=== PATIENT | female | born 1950 | race Caucasian/White ===

== ENCOUNTER 2018-09-18 08:20 | Inpatient (IN) | payer MEDICAID ==
[2018-09-18] VITALS (16 sets, daily range): BP systolic 96–154; BP diastolic 46–64
[~2018-09-18] VITALS: Ht 175.3 cm; Wt 132.0 kg
[2018-09-18] MEDS ORDERED: propofol 1000mg/100ml bottle 100 ML IV ONE (11:54)
[2018-09-18 12:51] LABS: ABG BASE EXCESS 12.1 mmol/L (-2.0-3.0); ABG HCO3 36.5 mmol/L (22.0-26.0); ABG PCO2 (T) 48.5 mmHg (32.0-45.0); ABG PH (T) 7.494 (7.350-7.450); ABG PO2 (T) 122.1 mmHg (83-108); FCOHb 0.3 % (0.5-1.5); FMetHb 0.3 % (0.3-1.12); FO2Hb 97.4 % (94-100); MINUTE VOLUME 7 L/min; PEEP 8 cm H2O; RESPIRATORY RATE 12 b/min; RESPIRATORY RATE (OBSERVED) 14 b/min; TIDAL VOLUME 500 mL; TOTAL HEMOGLOBIN 6.4 G/dl (12.0-16.0)
[2018-09-18] MEDS ORDERED: metoclopramide 5 mg/ml inj IV PRN (14:45)
[2018-09-18] MEDS ORDERED: magnesium hydroxide 30ml (MOM) UD suspension PO PRN (14:45)
[2018-09-18] MEDS: K, MAG and/or Phos replacement - Verify level? MC SCH (14:45)
[2018-09-18] MEDS ORDERED: magnesium 1gm/100ml D5W IVPB 100 ML IV PRN (14:45)
[2018-09-18] MEDS ORDERED: magnesium Cl slow-release 64mg tablet PO PRN (14:45)
[2018-09-18] MEDS ORDERED: sodium phosphate inj. 15 MMOL in dextrose 5%-water 150 ML IV PRN (14:45)
[2018-09-18] MEDS ORDERED: acetaminophen 325mg tablet PO PRN (14:45)
[2018-09-18] MEDS ORDERED: sodium phosphate inj. 30 MMOL in dextrose 5%-water 250 ML IV PRN (14:45)
[2018-09-18] MEDS ORDERED: magnesium 4gm in 100ml NS 100 ML IV PRN (14:45)
[2018-09-18] MEDS ORDERED: Neutra Phos packet PO PRN (14:45)
[2018-09-18] MEDS ORDERED: ondansetron/PF 4mg/2ml inj IV PRN (14:45)
[2018-09-18] MEDS ORDERED: potassium Cl 20 mEq SR tablet PO PRN (14:45)
[2018-09-18 15:10] LABS: BASOPHILS # (AUTO) 0.1 X10'3 (0-0.2); BASOPHILS % (AUTO) 0.5 % (0-1); EOSINOPHILS # (AUTO) 0.2 X10'3 (0-0.9); EOSINOPHILS % (AUTO) 1.6 % (0-6); LYMPHOCYTES # (AUTO) 1.3 X10'3 (1.1-4.8); LYMPHOCYTES % (AUTO) 11.6 % (21-51); MEAN CORPUSCULAR HEMOGLOBIN 26.8 PG (27.0-31.0); MEAN CORPUSCULAR HGB CONC 32.5 % (33.0-36.5); MEAN CORPUSCULAR VOLUME 82.5 FL (78-98); MEAN PLATELET VOLUME 7.8 FL (7.4-10.4); MONOCYTES # (AUTO) 1.1 X10'3 (0-0.9); MONOCYTES % (AUTO) 10.1 % (2-12); NEUTROPHILS # (AUTO) 8.4 X10'3 (1.8-7.7); NEUTROPHILS % (AUTO) 76.2 % (42-75); PLATELET COUNT 446 X10'3 (140-440); RED BLOOD COUNT 2.16 X10'6 (4.20-5.60); RED CELL DISTRIBUTION WIDTH 19.3 % (11.5-14.5)
[2018-09-18 15:18] LABS: HEMATOCRIT 17.8 % (35.0-45.0); HEMOGLOBIN 5.8 g/dl (12.0-16.0)
[2018-09-18 15:20] LABS: ALANINE AMINOTRANSFERASE 9 U/L (12-78); ALBUMIN 1.9 G/DL (3.4-5.0); ALBUMIN/GLOBULIN RATIO 0.5 (1.1-1.5); ALKALINE PHOSPHATASE 95 IU/L (46-116); ANION GAP 5 (8-16); ASPARTATE AMINO TRANSFERASE 14 U/L (10-37); BILIRUBIN,TOTAL 0.3 MG/DL (0.1-1.0); BLOOD UREA NITROGEN 26 MG/DL (7-18); BUN/CREATININE RATIO 46.4 (6.6-38.0); CALCIUM 8.5 MG/DL (8.5-10.1); CHLORIDE 98 MMOL/L (99-107); CREATININE 0.56 MG/DL (0.40-0.90); GLUCOSE 152 MG/DL (70-104); POTASSIUM 3.2 MMOL/L (3.5-5.1); SODIUM 138 MMOL/L (135-145); TOTAL CARBON DIOXIDE 34.9 MMOL/L (24-32); TOTAL PROTEIN 5.7 G/DL (6.4-8.2); eGFR > 90 ML/MIN
[2018-09-18] MEDS: furosemide 40mg/4ml inj IV SCH ×2 (15:42→20:38)
[2018-09-18] MEDS ORDERED: FURO80TA3 PO (17:27)
[2018-09-18] MEDS ORDERED: RIVA20TA PO (17:27)
[2018-09-18] MEDS ORDERED: QUET300T19 PO (17:27)
[2018-09-18] MEDS ORDERED: DIVA-52 PO (17:27)
[2018-09-18] MEDS ORDERED: PARO20TA6 PO (17:27)
[2018-09-18] MEDS ORDERED: ALB0.5UD IH (17:37)
[2018-09-18] MEDS ORDERED: BECL10.6 IH (17:37)
[2018-09-18] MEDS ORDERED: ZIPR80CA10 PO (17:37)
[2018-09-18] MEDS ORDERED: DILT240C92 PO (17:37)
[2018-09-18] MEDS: propofol 1000mg/100ml bottle 100 ML IV PRN (18:07)
[2018-09-18 18:39] LABS: LACTIC SEPSIS 1.3 MMOL/L (0.4-2.0)
[2018-09-18 18:44] LABS: D-DIMER 0.55 MG/L FEU (0-0.50)
[2018-09-18 19:04] LABS: MAGNESIUM 2.1 MG/DL (1.5-2.4); PHOSPHORUS 5.3 MG/DL (2.3-4.5)
[2018-09-18] MEDS ORDERED: potassium Cl 40MEQ/250ML bag 250 ML IV PRN (19:15)
[2018-09-18] MEDS ORDERED: potassium Cl 40MEQ/NS 500ml 500 ML IV PRN ×2 (19:15)
[2018-09-18] MEDS ORDERED: heparin, porcine 5000 units/ml vial SQ SCH (20:00)
[2018-09-18] MEDS: enoxaparin 40mg/0.4ml syringe SUBCUT SCH (20:38)
[2018-09-18] MEDS: potassium Cl 40MEQ/250ML bag 250 ML IV PRN (20:38)
[2018-09-18] MEDS: famotidine 20mg tablet PO SCH (20:40)
[2018-09-18] MEDS: morphine 4 MG/ML inj SYRINge IV PRN (21:27)
[2018-09-18 22:24] LABS: MEAN CORPUSCULAR HEMOGLOBIN 27.1 PG (27.0-31.0); MEAN CORPUSCULAR HGB CONC 32.8 % (33.0-36.5); MEAN CORPUSCULAR VOLUME 82.8 FL (78-98); MEAN PLATELET VOLUME 7.5 FL (7.4-10.4); PLATELET COUNT 430 X10'3 (140-440); RED BLOOD COUNT 2.19 X10'6 (4.20-5.60); RED CELL DISTRIBUTION WIDTH 17.6 % (11.5-14.5); WHITE BLOOD COUNT 11.3 X10'3 (4.5-11.0)
[2018-09-18 22:26] LABS: HEMOGLOBIN 5.9 g/dl (12.0-16.0)
[2018-09-18 22:27] LABS: HEMATOCRIT 18.1 % (35.0-45.0)
[2018-09-19] VITALS (33 sets, daily range): BP systolic 106–167; BP diastolic 46–65
[2018-09-19 03:31] LABS: ABG BASE EXCESS 13.3 mmol/L (-2.0-3.0); ABG HCO3 37.6 mmol/L (22.0-26.0); ABG OXYGEN SATURATION 96.8 % (95-98); ABG PCO2 (T) 50.3 mmHg (32.0-45.0); ABG PH (T) 7.495 (7.350-7.450); ABG PO2 (T) 97.1 mmHg (83-108); ALLEN'S TEST Positive; FCOHb 0.1 % (0.5-1.5); FMetHb 0.3 % (0.3-1.12); FO2Hb 96.4 % (94-100); PATIENT TEMPERATURE 38.2; PEEP 8 cm H2O; RESPIRATORY RATE 10 b/min; TIDAL VOLUME 475 mL; TOTAL HEMOGLOBIN 6.9 G/dl (12.0-16.0)
[2018-09-19 03:57] LABS: BASOPHILS % (AUTO) 0.3 % (0-1); EOSINOPHILS % (AUTO) 0.1 % (0-6); LYMPHOCYTES # (AUTO) 1.3 X10'3 (1.1-4.8); LYMPHOCYTES % (AUTO) 12.6 % (21-51); MEAN CORPUSCULAR HEMOGLOBIN 28.1 PG (27.0-31.0); MEAN CORPUSCULAR HGB CONC 33.4 % (33.0-36.5); MEAN CORPUSCULAR VOLUME 84.2 FL (78-98); MEAN PLATELET VOLUME 7.8 FL (7.4-10.4); MONOCYTES # (AUTO) 1.1 X10'3 (0-0.9); MONOCYTES % (AUTO) 10.9 % (2-12); NEUTROPHILS # (AUTO) 7.7 X10'3 (1.8-7.7); NEUTROPHILS % (AUTO) 76.1 % (42-75); PLATELET COUNT 379 X10'3 (140-440); RED BLOOD COUNT 2.31 X10'6 (4.20-5.60); RED CELL DISTRIBUTION WIDTH 17.6 % (11.5-14.5); WHITE BLOOD COUNT 10.1 X10'3 (4.5-11.0)
[2018-09-19 04:07] LABS: HEMATOCRIT 19.5 % (35.0-45.0); HEMOGLOBIN 6.5 g/dl (12.0-16.0)
[2018-09-19 04:09] LABS: PROTHROMBIN TIME 10.5 SECONDS (9.0-12.0)
[2018-09-19 04:21] LABS: ALANINE AMINOTRANSFERASE 9 U/L (12-78); ALBUMIN 1.8 G/DL (3.4-5.0); ALBUMIN/GLOBULIN RATIO 0.5 (1.1-1.5); ALKALINE PHOSPHATASE 89 IU/L (46-116); ANION GAP 5 (8-16); ASPARTATE AMINO TRANSFERASE 16 U/L (10-37); BILIRUBIN,TOTAL 0.5 MG/DL (0.1-1.0); BLOOD UREA NITROGEN 25 MG/DL (7-18); BUN/CREATININE RATIO 39.1 (6.6-38.0); CALCIUM 8.3 MG/DL (8.5-10.1); CHLORIDE 98 MMOL/L (99-107); CREATININE 0.64 MG/DL (0.40-0.90); GLUCOSE 136 MG/DL (70-104); POTASSIUM 3.2 MMOL/L (3.5-5.1); SODIUM 139 MMOL/L (135-145); TOTAL CARBON DIOXIDE 36.5 MMOL/L (24-32); TOTAL PROTEIN 5.5 G/DL (6.4-8.2); eGFR > 90 ML/MIN
[2018-09-19] MEDS: propofol 1000mg/100ml bottle 100 ML IV PRN ×2 (05:12→11:56)
[2018-09-19] MEDS: morphine 2 MG/ML inj. syringe IV PRN ×2 (05:36→11:57)
[2018-09-19] MEDS ORDERED: furosemide 20 MG/2 ML vial IV ONE (06:45)
[2018-09-19] MEDS: K, MAG and/or Phos replacement - Verify level? MC SCH (08:00)
[2018-09-19] MEDS: potassium Cl 20 mEq SR tablet PO PRN ×2 (08:19→11:57)
[2018-09-19] MEDS: furosemide 40mg/4ml inj IV SCH ×2 (08:19→20:02)
[2018-09-19] MEDS: famotidine 20mg tablet PO SCH ×2 (08:19→20:02)
[2018-09-19] MEDS: enoxaparin 40mg/0.4ml syringe SUBCUT SCH (08:20)
[2018-09-19] MEDS: diatr meglu/diatrizoate 30ml oral sol.-(3 dose) bottle PO SCH ×3 (11:57→16:34)
[2018-09-19] MEDS: valproate sod 250mg/5ml UD oral syrup PO SCH ×2 (12:15→20:02)
[2018-09-19] MEDS: PARoxetine 20mg tablet PO SCH (12:44)
[2018-09-19] MEDS: ziprasidone IM 20mg inj **IM only IM SCH ×2 (12:44→20:02)
[2018-09-19] MEDS: quetiapine 100mg tablet PO SCH (12:44)
[2018-09-19 14:18] LABS: MEAN CORPUSCULAR HEMOGLOBIN 28.2 PG (27.0-31.0); MEAN CORPUSCULAR VOLUME 85.4 FL (78-98); MEAN PLATELET VOLUME 8.1 FL (7.4-10.4); PLATELET COUNT 435 X10'3 (140-440); RED BLOOD COUNT 2.32 X10'6 (4.20-5.60); RED CELL DISTRIBUTION WIDTH 16.9 % (11.5-14.5); WHITE BLOOD COUNT 11.2 X10'3 (4.5-11.0)
[2018-09-19 14:20] LABS: RED BLOOD COUNT 2.35 X10'6 (4.20-5.60); RETICULOCYTE % (AUTO) 4.8 % (0.5-1.5)
[2018-09-19 14:26] LABS: HEMATOCRIT 19.8 % (35.0-45.0); HEMOGLOBIN 6.5 g/dl (12.0-16.0)
[2018-09-19] MEDS ORDERED: iohexol 300mg/ml 100ml inj. ONE (16:51)
[2018-09-19] MEDS: CefTRIAXone 2gm/D5W 50ml 50 ML IV SCH (20:03)
[2018-09-19] MEDS ORDERED: quetiapine 100mg tablet PO SCH (21:00)
[2018-09-19] MEDS ORDERED: ZIPRASIDONE HCL PO SCH (21:00)
[2018-09-19] MEDS ORDERED: QUEtiapine 25mg tablet PO SCH (21:00)
[2018-09-19 21:06] LABS: HEMATOCRIT 22.4 % (35.0-45.0); HEMOGLOBIN 7.5 g/dl (12.0-16.0); MEAN CORPUSCULAR HEMOGLOBIN 28.1 PG (27.0-31.0); MEAN CORPUSCULAR HGB CONC 33.6 % (33.0-36.5); MEAN CORPUSCULAR VOLUME 83.6 FL (78-98); MEAN PLATELET VOLUME 7.7 FL (7.4-10.4); PLATELET COUNT 374 X10'3 (140-440); RED BLOOD COUNT 2.68 X10'6 (4.20-5.60); RED CELL DISTRIBUTION WIDTH 17.4 % (11.5-14.5); WHITE BLOOD COUNT 11.8 X10'3 (4.5-11.0)
[2018-09-20] VITALS (26 sets, daily range): BP systolic 91–149; BP diastolic 40–65
[2018-09-20 03:41] LABS: ABG BASE EXCESS 10.7 mmol/L (-2.0-3.0); ABG HCO3 34.9 mmol/L (22.0-26.0); ABG OXYGEN SATURATION 93.5 % (95-98); ABG PH (T) 7.492 (7.350-7.450); ABG PO2 (T) 71.6 mmHg (83-108); ALLEN'S TEST Positive; FCOHb 0.5 % (0.5-1.5); FMetHb 0.1 % (0.3-1.12); FO2Hb 92.9 % (94-100); MINUTE VOLUME 8 L/min; PATIENT TEMPERATURE 38.1; PEEP 8 cm H2O; RESPIRATORY RATE (OBSERVED) 23 b/min; TOTAL HEMOGLOBIN 10.2 G/dl (12.0-16.0)
[2018-09-20 04:33] LABS: BASOPHILS % (AUTO) 0.2 % (0-1); EOSINOPHILS % (AUTO) 0 % (0-6); LYMPHOCYTES # (AUTO) 0.8 X10'3 (1.1-4.8); LYMPHOCYTES % (AUTO) 7.2 % (21-51); MEAN CORPUSCULAR HEMOGLOBIN 28.4 PG (27.0-31.0); MEAN CORPUSCULAR HGB CONC 34.1 % (33.0-36.5); MEAN CORPUSCULAR VOLUME 83.4 FL (78-98); MONOCYTES # (AUTO) 0.9 X10'3 (0-0.9); MONOCYTES % (AUTO) 8.7 % (2-12); NEUTROPHILS # (AUTO) 8.9 X10'3 (1.8-7.7); NEUTROPHILS % (AUTO) 83.9 % (42-75); PLATELET COUNT 381 X10'3 (140-440); RED BLOOD COUNT 2.17 X10'6 (4.20-5.60); RED CELL DISTRIBUTION WIDTH 17.1 % (11.5-14.5); WHITE BLOOD COUNT 10.6 X10'3 (4.5-11.0)
[2018-09-20 04:36] LABS: HEMATOCRIT 18.1 % (35.0-45.0); HEMOGLOBIN 6.2 g/dl (12.0-16.0)
[2018-09-20 04:43] LABS: PROTHROMBIN TIME 10.4 SECONDS (9.0-12.0)
[2018-09-20 04:46] LABS: ALANINE AMINOTRANSFERASE 10 U/L (12-78); ALBUMIN 1.7 G/DL (3.4-5.0); ALBUMIN/GLOBULIN RATIO 0.4 (1.1-1.5); ALKALINE PHOSPHATASE 81 IU/L (46-116); ANION GAP 4 (8-16); ASPARTATE AMINO TRANSFERASE 27 U/L (10-37); BILIRUBIN,TOTAL 0.5 MG/DL (0.1-1.0); BLOOD UREA NITROGEN 24 MG/DL (7-18); BUN/CREATININE RATIO 46.2 (6.6-38.0); CALCIUM 8.8 MG/DL (8.5-10.1); CHLORIDE 97 MMOL/L (99-107); CREATININE 0.52 MG/DL (0.40-0.90); GLUCOSE 170 MG/DL (70-104); POTASSIUM 3.3 MMOL/L (3.5-5.1); PREALBUMIN 17.1 MG/DL (19-36); SODIUM 137 MMOL/L (135-145); TOTAL CARBON DIOXIDE 36.2 MMOL/L (24-32); TOTAL PROTEIN 5.9 G/DL (6.4-8.2); eGFR > 90 ML/MIN
[2018-09-20] MEDS: propofol 1000mg/100ml bottle 100 ML IV PRN ×2 (05:03→17:21)
[2018-09-20] MEDS ORDERED: potassium Cl oral solution 20 MEQ/15 ML PO PRN (05:25)
[2018-09-20] MEDS: potassium Cl oral solution 20 MEQ/15 ML PO PRN (05:33)
[2018-09-20] MEDS: K, MAG and/or Phos replacement - Verify level? MC SCH (08:00)
[2018-09-20] MEDS ORDERED: diltiazem CD 120mg capsule (once-daily) PO SCH (08:00)
[2018-09-20] MEDS: CefTRIAXone 2gm/D5W 50ml 50 ML IV SCH (08:17)
[2018-09-20] MEDS: furosemide 40mg/4ml inj IV SCH ×2 (08:17→19:55)
[2018-09-20] MEDS: PARoxetine 20mg tablet PO SCH (08:17)
[2018-09-20] MEDS: quetiapine 100mg tablet PO SCH ×2 (08:17→14:29)
[2018-09-20] MEDS: famotidine 20mg tablet PO SCH ×2 (08:17→19:55)
[2018-09-20] MEDS: valproate sod 250mg/5ml UD oral syrup PO SCH ×3 (08:18→19:55)
[2018-09-20] MEDS: ziprasidone IM 20mg inj **IM only IM SCH ×2 (08:18→19:55)
[2018-09-20] MEDS: BUDESONIDE 0.25 MG/2 ML AMPUL.NEB IH SCH ×2 (09:00→21:00)
[2018-09-20] MEDS ORDERED: pneumococcal 23-VAL P-sac vacc 25 mcg/0.5ml vial IMVAC ONE (10:00)
[2018-09-20 10:28] LABS: HEMOGLOBIN A1C 5.8 % (4.5-6.2)
[2018-09-20] MEDS: diltiazem 30mg tablet PO SCH ×3 (12:10→19:55)
[2018-09-20] MEDS: pantoprazole 40 MG vial IV SCH (12:15)
[2018-09-20] MEDS: levoFLOXACIN 750MG TABLET PO SCH (12:15)
[2018-09-20 17:22] LABS: BASOPHILS % (AUTO) 0.2 % (0-1); EOSINOPHILS % (AUTO) 0 % (0-6); LYMPHOCYTES # (AUTO) 0.8 X10'3 (1.1-4.8); LYMPHOCYTES % (AUTO) 7.9 % (21-51); MEAN CORPUSCULAR HEMOGLOBIN 28.6 PG (27.0-31.0); MEAN CORPUSCULAR HGB CONC 33.2 % (33.0-36.5); MEAN CORPUSCULAR VOLUME 86.1 FL (78-98); MEAN PLATELET VOLUME 7.7 FL (7.4-10.4); MONOCYTES # (AUTO) 0.7 X10'3 (0-0.9); MONOCYTES % (AUTO) 7.1 % (2-12); NEUTROPHILS # (AUTO) 8.2 X10'3 (1.8-7.7); NEUTROPHILS % (AUTO) 84.8 % (42-75); PLATELET COUNT 322 X10'3 (140-440); RED BLOOD COUNT 2.31 X10'6 (4.20-5.60); RED CELL DISTRIBUTION WIDTH 17.6 % (11.5-14.5); WHITE BLOOD COUNT 9.7 X10'3 (4.5-11.0)
[2018-09-20 17:24] LABS: HEMATOCRIT 19.9 % (35.0-45.0); HEMOGLOBIN 6.6 g/dl (12.0-16.0)
[2018-09-20] MEDS: methylPREDNISolone sod succ 125mg/2ml vial IV SCH (19:55)
[2018-09-20] MEDS ORDERED: glucagon, human recombinant 1mg kit SUBCUT PRN (20:00)
[2018-09-20] MEDS ORDERED: MESSAGE TO PHARMACY PO ONE (20:00)
[2018-09-20] MEDS ORDERED: dextrose ORAL solution 15 GM/59 ML bottle PO PRN ×2 (20:00)
[2018-09-20] MEDS ORDERED: dextrose 50%-water 50ml dispensing syringe IV PRN ×2 (20:00)
[2018-09-20 20:15] LABS: MEAN CORPUSCULAR HEMOGLOBIN 29.1 PG (27.0-31.0); MEAN CORPUSCULAR HGB CONC 33.5 % (33.0-36.5); MEAN CORPUSCULAR VOLUME 86.8 FL (78-98); PLATELET COUNT 311 X10'3 (140-440); RED BLOOD COUNT 2.28 X10'6 (4.20-5.60); RED CELL DISTRIBUTION WIDTH 18.4 % (11.5-14.5); WHITE BLOOD COUNT 9.8 X10'3 (4.5-11.0)
[2018-09-20 20:34] LABS: HEMATOCRIT 19.8 % (35.0-45.0); HEMOGLOBIN 6.6 g/dl (12.0-16.0)
[2018-09-20] MEDS: insulin glargine (Lantus) pen - multi-dose SQ SCH (20:58)
[2018-09-20] MEDS: insulin regular, human vial - multi-dose SQ SCH (21:07)
[2018-09-21] VITALS (24 sets, daily range): BP systolic 107–163; BP diastolic 47–65
[2018-09-21] MEDS: insulin regular, human vial - multi-dose SQ SCH ×4 (01:53→20:05)
[2018-09-21] MEDS: methylPREDNISolone sod succ 125mg/2ml vial IV SCH ×3 (01:53→19:41)
[2018-09-21] MEDS: diltiazem 30mg tablet PO SCH ×4 (01:54→19:41)
[2018-09-21 02:15] LABS: BASOPHILS % (AUTO) 0 % (0-1); EOSINOPHILS % (AUTO) 0 % (0-6); LYMPHOCYTES # (AUTO) 0.5 X10'3 (1.1-4.8); LYMPHOCYTES % (AUTO) 4.7 % (21-51); MEAN CORPUSCULAR HEMOGLOBIN 28.5 PG (27.0-31.0); MEAN CORPUSCULAR HGB CONC 32.8 % (33.0-36.5); MEAN CORPUSCULAR VOLUME 86.9 FL (78-98); MEAN PLATELET VOLUME 8.3 FL (7.4-10.4); MONOCYTES # (AUTO) 0.4 X10'3 (0-0.9); MONOCYTES % (AUTO) 4.2 % (2-12); NEUTROPHILS # (AUTO) 9.2 X10'3 (1.8-7.7); NEUTROPHILS % (AUTO) 91.1 % (42-75); PLATELET COUNT 324 X10'3 (140-440); RED BLOOD COUNT 2.25 X10'6 (4.20-5.60); RED CELL DISTRIBUTION WIDTH 17.8 % (11.5-14.5); WHITE BLOOD COUNT 10.1 X10'3 (4.5-11.0)
[2018-09-21 02:23] LABS: HEMOGLOBIN 6.4 g/dl (12.0-16.0)
[2018-09-21 02:24] LABS: HEMATOCRIT 19.5 % (35.0-45.0)
[2018-09-21 02:31] LABS: PROTHROMBIN TIME 10.5 SECONDS (9.0-12.0)
[2018-09-21 02:37] LABS: ALANINE AMINOTRANSFERASE 11 U/L (12-78); ALBUMIN 1.5 G/DL (3.4-5.0); ALBUMIN/GLOBULIN RATIO 0.4 (1.1-1.5); ALKALINE PHOSPHATASE 102 IU/L (46-116); ANION GAP 4 (8-16); ASPARTATE AMINO TRANSFERASE 52 U/L (10-37); BILIRUBIN,TOTAL 0.5 MG/DL (0.1-1.0); BLOOD UREA NITROGEN 30 MG/DL (7-18); BUN/CREATININE RATIO 47.6 (6.6-38.0); CALCIUM 8.7 MG/DL (8.5-10.1); CHLORIDE 98 MMOL/L (99-107); CREATININE 0.63 MG/DL (0.40-0.90); GLUCOSE 204 MG/DL (70-104); POTASSIUM 3.4 MMOL/L (3.5-5.1); SODIUM 137 MMOL/L (135-145); TOTAL CARBON DIOXIDE 35.5 MMOL/L (24-32); TOTAL PROTEIN 5.6 G/DL (6.4-8.2); eGFR > 90 ML/MIN
[2018-09-21 03:50] LABS: ABG BASE EXCESS 11.8 mmol/L (-2.0-3.0); ABG HCO3 36.1 mmol/L (22.0-26.0); ABG PCO2 (T) 47.7 mmHg (32.0-45.0); ABG PH (T) 7.498 (7.350-7.450); ABG PO2 (T) 82.5 mmHg (83-108); ALLEN'S TEST Positive; FCOHb 0.4 % (0.5-1.5); FMetHb 0.1 % (0.3-1.12); FO2Hb 95.5 % (94-100); MINUTE VOLUME 9 L/min; PATIENT TEMPERATURE 37.4; PEEP 8 cm H2O; TOTAL HEMOGLOBIN 7.6 G/dl (12.0-16.0)
[2018-09-21] MEDS: potassium Cl 40MEQ/250ML bag 250 ML IV PRN (04:42)
[2018-09-21] MEDS: propofol 1000mg/100ml bottle 100 ML IV PRN ×3 (04:43→20:46)
[2018-09-21] MEDS: ziprasidone IM 20mg inj **IM only IM SCH ×2 (07:41→19:39)
[2018-09-21] MEDS: CefTRIAXone 2gm/D5W 50ml 50 ML IV SCH (07:41)
[2018-09-21] MEDS: furosemide 40mg/4ml inj IV SCH ×4 (07:42→23:30)
[2018-09-21] MEDS: famotidine 20mg tablet PO SCH ×2 (07:42→19:41)
[2018-09-21] MEDS: PARoxetine 20mg tablet PO SCH (07:42)
[2018-09-21] MEDS: pantoprazole 40 MG vial IV SCH (07:42)
[2018-09-21] MEDS: K, MAG and/or Phos replacement - Verify level? MC SCH (07:43)
[2018-09-21] MEDS: quetiapine 100mg tablet PO SCH ×2 (07:51→13:48)
[2018-09-21] MEDS: valproate sod 250mg/5ml UD oral syrup PO SCH ×3 (07:51→19:41)
[2018-09-21] MEDS: BUDESONIDE 0.25 MG/2 ML AMPUL.NEB IH SCH ×2 (09:00→19:27)
[2018-09-21] MEDS: levoFLOXACIN 750MG TABLET PO SCH (12:33)
[2018-09-21] MEDS: morphine 2 MG/ML inj. syringe IV PRN (13:51)
[2018-09-21 14:02] LABS: MEAN CORPUSCULAR HEMOGLOBIN 28.5 PG (27.0-31.0); MEAN CORPUSCULAR HGB CONC 32.6 % (33.0-36.5); MEAN CORPUSCULAR VOLUME 87.3 FL (78-98); MEAN PLATELET VOLUME 8.4 FL (7.4-10.4); PLATELET COUNT 311 X10'3 (140-440); RED BLOOD COUNT 2.18 X10'6 (4.20-5.60); RED CELL DISTRIBUTION WIDTH 18.1 % (11.5-14.5); WHITE BLOOD COUNT 7.4 X10'3 (4.5-11.0)
[2018-09-21 14:08] LABS: HEMOGLOBIN 6.2 g/dl (12.0-16.0)
[2018-09-21 14:16] LABS: HEMATOCRIT 19.1 % (35.0-45.0)
[2018-09-21 14:22] LABS: ANISOCYTOSIS 2+; PLATELET ESTIMATE NORMAL; TOTAL CELLS COUNTED 100
[2018-09-21] MEDS: albumin (human) 25% 100ml IV 100 ML IV SCH ×2 (16:13→23:30)
[2018-09-21] MEDS: albuterol 2.5 MG/3 ML nebule NEB PRN (19:27)
[2018-09-21] MEDS: insulin glargine (Lantus) pen - multi-dose SQ SCH (20:06)
[2018-09-21] MEDS: morphine 4 MG/ML inj SYRINge IV PRN (20:09)
[2018-09-22] VITALS (23 sets, daily range): BP systolic 134–165; BP diastolic 50–65
[2018-09-22] MEDS: diltiazem 30mg tablet PO SCH ×4 (02:26→20:15)
[2018-09-22] MEDS: morphine 4 MG/ML inj SYRINge IV PRN (02:26)
[2018-09-22] MEDS: insulin regular, human vial - multi-dose SQ SCH ×4 (03:20→20:52)
[2018-09-22 03:41] LABS: ABG BASE EXCESS 12.2 mmol/L (-2.0-3.0); ABG HCO3 37.1 mmol/L (22.0-26.0); ABG OXYGEN SATURATION 95.2 % (95-98); ABG PCO2 (T) 50.7 mmHg (32.0-45.0); ABG PO2 (T) 76.1 mmHg (83-108); ALLEN'S TEST Positive; FCOHb 0.3 % (0.5-1.5); FMetHb 0.3 % (0.3-1.12); FO2Hb 94.6 % (94-100); MINUTE VOLUME 8 L/min; PATIENT TEMPERATURE 36.4; PEEP 8 cm H2O; TOTAL HEMOGLOBIN 7.3 G/dl (12.0-16.0)
[2018-09-22] MEDS: propofol 1000mg/100ml bottle 100 ML IV PRN ×3 (04:15→20:17)
[2018-09-22 05:53] LABS: PROTHROMBIN TIME 10.3 SECONDS (9.0-12.0)
[2018-09-22 06:13] LABS: ALANINE AMINOTRANSFERASE 13 U/L (12-78); ALBUMIN/GLOBULIN RATIO 0.5 (1.1-1.5); ALKALINE PHOSPHATASE 92 IU/L (46-116); ANION GAP 9 (8-16); ASPARTATE AMINO TRANSFERASE 27 U/L (10-37); BILIRUBIN,TOTAL 0.5 MG/DL (0.1-1.0); BLOOD UREA NITROGEN 57 MG/DL (7-18); BUN/CREATININE RATIO 79.2 (6.6-38.0); CALCIUM 8.9 MG/DL (8.5-10.1); CHLORIDE 97 MMOL/L (99-107); CREATININE 0.72 MG/DL (0.40-0.90); GLUCOSE 242 MG/DL (70-104); MAGNESIUM 2.1 MG/DL (1.5-2.4); POTASSIUM 3.2 MMOL/L (3.5-5.1); SODIUM 140 MMOL/L (135-145); TOTAL CARBON DIOXIDE 33.6 MMOL/L (24-32); TOTAL PROTEIN 6.1 G/DL (6.4-8.2); eGFR 81 ML/MIN
[2018-09-22] MEDS: BUDESONIDE 0.25 MG/2 ML AMPUL.NEB IH SCH ×2 (06:55→19:01)
[2018-09-22] MEDS: albuterol 2.5 MG/3 ML nebule NEB PRN ×2 (06:55→19:01)
[2018-09-22 07:49] LABS: BASOPHILS % (AUTO) 0 % (0-1); EOSINOPHILS % (AUTO) 0 % (0-6); LYMPHOCYTES # (AUTO) 0.4 X10'3 (1.1-4.8); LYMPHOCYTES % (AUTO) 6.2 % (21-51); MEAN CORPUSCULAR HEMOGLOBIN 28.5 PG (27.0-31.0); MEAN CORPUSCULAR HGB CONC 32.5 % (33.0-36.5); MEAN CORPUSCULAR VOLUME 87.8 FL (78-98); MEAN PLATELET VOLUME 8.5 FL (7.4-10.4); MONOCYTES # (AUTO) 0.3 X10'3 (0-0.9); MONOCYTES % (AUTO) 3.8 % (2-12); NEUTROPHILS # (AUTO) 6.4 X10'3 (1.8-7.7); PLATELET COUNT 324 X10'3 (140-440); RED BLOOD COUNT 2.11 X10'6 (4.20-5.60); RED CELL DISTRIBUTION WIDTH 18.1 % (11.5-14.5); WHITE BLOOD COUNT 7.1 X10'3 (4.5-11.0)
[2018-09-22 08:00] LABS: HEMATOCRIT 18.5 % (35.0-45.0)
[2018-09-22] MEDS: K, MAG and/or Phos replacement - Verify level? MC SCH (08:00)
[2018-09-22] MEDS: PARoxetine 20mg tablet PO SCH (09:11)
[2018-09-22] MEDS: ziprasidone IM 20mg inj **IM only IM SCH ×2 (09:11→20:15)
[2018-09-22] MEDS: albumin (human) 25% 100ml IV 100 ML IV SCH ×2 (09:11→16:54)
[2018-09-22] MEDS: famotidine 20mg tablet PO SCH ×2 (09:11→20:15)
[2018-09-22] MEDS: methylPREDNISolone sod succ 125mg/2ml vial IV SCH ×2 (09:12→20:15)
[2018-09-22] MEDS: CefTRIAXone 2gm/D5W 50ml 50 ML IV SCH (09:13)
[2018-09-22] MEDS: quetiapine 100mg tablet PO SCH ×2 (09:23→14:53)
[2018-09-22] MEDS: valproate sod 250mg/5ml UD oral syrup PO SCH ×3 (09:23→20:15)
[2018-09-22] MEDS: furosemide 40mg/4ml inj IV SCH ×2 (09:33→16:53)
[2018-09-22] MEDS: potassium Cl 40MEQ/250ML bag 250 ML IV PRN (10:43)
[2018-09-22] MEDS: levoFLOXACIN 750MG TABLET PO SCH (11:00)
[2018-09-22 15:01] LABS: % IRON SATURATION 32 % (11-46); IRON 50 UG/DL (49-151); TOTAL IRON BINDING CAPACITY 156 UG/DL (259-388)
[2018-09-22 15:44] LABS: FERRITIN 575 NG/ML (8-252)
[2018-09-22] MEDS: insulin glargine (Lantus) pen - multi-dose SQ SCH (20:53)
[2018-09-23] VITALS (24 sets, daily range): BP systolic 127–168; BP diastolic 46–71
[2018-09-23] MEDS: albumin (human) 25% 100ml IV 100 ML IV SCH ×3 (00:09→15:30)
[2018-09-23] MEDS: furosemide 40mg/4ml inj IV SCH ×3 (00:09→15:31)
[2018-09-23] MEDS: propofol 1000mg/100ml bottle 100 ML IV PRN ×5 (01:31→20:15)
[2018-09-23] MEDS: diltiazem 30mg tablet PO SCH ×4 (01:35→19:47)
[2018-09-23] MEDS: insulin regular, human vial - multi-dose SQ SCH ×3 (01:54→20:00)
[2018-09-23 04:00] LABS: BASOPHILS % (AUTO) 0.2 % (0-1); EOSINOPHILS % (AUTO) 0 % (0-6); LYMPHOCYTES # (AUTO) 0.4 X10'3 (1.1-4.8); LYMPHOCYTES % (AUTO) 5.6 % (21-51); MEAN CORPUSCULAR HEMOGLOBIN 28.4 PG (27.0-31.0); MEAN CORPUSCULAR HGB CONC 32.6 % (33.0-36.5); MEAN CORPUSCULAR VOLUME 87.3 FL (78-98); MEAN PLATELET VOLUME 8.7 FL (7.4-10.4); MONOCYTES # (AUTO) 0.3 X10'3 (0-0.9); MONOCYTES % (AUTO) 3.9 % (2-12); NEUTROPHILS # (AUTO) 6.3 X10'3 (1.8-7.7); NEUTROPHILS % (AUTO) 90.3 % (42-75); PLATELET COUNT 379 X10'3 (140-440); RED BLOOD COUNT 2.22 X10'6 (4.20-5.60)
[2018-09-23 04:03] LABS: HEMATOCRIT 19.4 % (35.0-45.0); HEMOGLOBIN 6.3 g/dl (12.0-16.0)
[2018-09-23 04:05] LABS: ABG BASE EXCESS 11.4 mmol/L (-2.0-3.0); ABG HCO3 37.3 mmol/L (22.0-26.0); ABG OXYGEN SATURATION 94.2 % (95-98); ABG PCO2 (T) 58.5 mmHg (32.0-45.0); ABG PH (T) 7.419 (7.350-7.450); ABG PO2 (T) 69.1 mmHg (83-108); ALLEN'S TEST Positive; FCOHb 0.6 % (0.5-1.5); FMetHb 0.1 % (0.3-1.12); FO2Hb 93.5 % (94-100); PATIENT TEMPERATURE 36.1; PEEP 8 cm H2O; TOTAL HEMOGLOBIN 7.1 G/dl (12.0-16.0)
[2018-09-23 04:14] LABS: PROTHROMBIN TIME 10.2 SECONDS (9.0-12.0)
[2018-09-23 04:30] LABS: ALANINE AMINOTRANSFERASE 14 U/L (12-78); ALBUMIN 2.4 G/DL (3.4-5.0); ALBUMIN/GLOBULIN RATIO 0.6 (1.1-1.5); ALKALINE PHOSPHATASE 74 IU/L (46-116); ANION GAP 8 (8-16); ASPARTATE AMINO TRANSFERASE 18 U/L (10-37); BILIRUBIN,TOTAL 0.4 MG/DL (0.1-1.0); BLOOD UREA NITROGEN 74 MG/DL (7-18); BUN/CREATININE RATIO 113.8 (6.6-38.0); CHLORIDE 99 MMOL/L (99-107); CREATININE 0.65 MG/DL (0.40-0.90); GLUCOSE 248 MG/DL (70-104); MAGNESIUM 2.2 MG/DL (1.5-2.4); POTASSIUM 3.4 MMOL/L (3.5-5.1); SODIUM 144 MMOL/L (135-145); TOTAL CARBON DIOXIDE 37.5 MMOL/L (24-32); TOTAL PROTEIN 6.1 G/DL (6.4-8.2); eGFR > 90 ML/MIN
[2018-09-23] MEDS: ziprasidone IM 20mg inj **IM only IM SCH ×2 (07:36→19:47)
[2018-09-23] MEDS: valproate sod 250mg/5ml UD oral syrup PO SCH ×2 (07:37→13:42)
[2018-09-23] MEDS: potassium Cl 40MEQ/250ML bag 250 ML IV PRN ×2 (07:37→07:48)
[2018-09-23] MEDS: K, MAG and/or Phos replacement - Verify level? MC SCH (07:38)
[2018-09-23] MEDS: famotidine 20mg tablet PO SCH ×2 (07:38→19:47)
[2018-09-23] MEDS: quetiapine 100mg tablet PO SCH ×2 (07:38→13:42)
[2018-09-23] MEDS: methylPREDNISolone sod succ 125mg/2ml vial IV SCH (07:38)
[2018-09-23] MEDS: CefTRIAXone 2gm/D5W 50ml 50 ML IV SCH (07:38)
[2018-09-23] MEDS: PARoxetine 20mg tablet PO SCH (07:38)
[2018-09-23] MEDS: methylnaltrexone br 12mg/0.6ml inj***SubQ only SQ SCH (07:39)
[2018-09-23] MEDS: BUDESONIDE 0.25 MG/2 ML AMPUL.NEB IH SCH ×2 (08:01→19:14)
[2018-09-23] MEDS: levoFLOXACIN 750MG TABLET PO SCH (10:36)
[2018-09-23] MEDS: potassium Cl oral solution 20 MEQ/15 ML PO PRN (15:34)
[2018-09-23] MEDS: albuterol 2.5 MG/3 ML nebule NEB PRN (19:14)
[2018-09-23] MEDS: methylPREDNISolone sod succ/PF 40mg inj. IV SCH (19:46)
[2018-09-23] MEDS: insulin glargine (Lantus) pen - multi-dose SQ SCH (20:01)
[2018-09-23 22:16] LABS: MAGNESIUM 2.2 MG/DL (1.5-2.4)
[2018-09-24] VITALS (24 sets, daily range): BP systolic 56–160; BP diastolic 50–69
[2018-09-24] MEDS: furosemide 40mg/4ml inj IV SCH ×3 (00:42→16:45)
[2018-09-24] MEDS: propofol 1000mg/100ml bottle 100 ML IV PRN ×2 (00:43→06:38)
[2018-09-24] MEDS: albumin (human) 25% 100ml IV 100 ML IV SCH ×2 (00:44→07:46)
[2018-09-24] MEDS: diltiazem 30mg tablet PO SCH ×4 (02:40→20:00)
[2018-09-24] MEDS: insulin regular, human vial - multi-dose SQ SCH ×3 (02:44→13:54)
[2018-09-24 03:51] LABS: ABG BASE EXCESS 12.6 mmol/L (-2.0-3.0); ABG HCO3 37.1 mmol/L (22.0-26.0); ABG OXYGEN SATURATION 95.5 % (95-98); ABG PCO2 (T) 49.8 mmHg (32.0-45.0); ABG PH (T) 7.491 (7.350-7.450); ABG PO2 (T) 82.6 mmHg (83-108); ALLEN'S TEST Positive; FCOHb 0.2 % (0.5-1.5); FMetHb 0.2 % (0.3-1.12); FO2Hb 95.1 % (94-100); MINUTE VOLUME 9 L/min; PATIENT TEMPERATURE 37.2; PEEP 8 cm H2O; TOTAL HEMOGLOBIN 7.5 G/dl (12.0-16.0)
[2018-09-24] MEDS: morphine 2 MG/ML inj. syringe IV PRN ×2 (04:49→18:51)
[2018-09-24 06:24] LABS: BASOPHILS % (AUTO) 0 % (0-1); EOSINOPHILS % (AUTO) 0 % (0-6); LYMPHOCYTES # (AUTO) 0.5 X10'3 (1.1-4.8); LYMPHOCYTES % (AUTO) 6.6 % (21-51); MEAN CORPUSCULAR HEMOGLOBIN 28.7 PG (27.0-31.0); MEAN CORPUSCULAR HGB CONC 32.9 % (33.0-36.5); MEAN CORPUSCULAR VOLUME 87.3 FL (78-98); MEAN PLATELET VOLUME 8.2 FL (7.4-10.4); MONOCYTES # (AUTO) 0.3 X10'3 (0-0.9); MONOCYTES % (AUTO) 4.9 % (2-12); NEUTROPHILS # (AUTO) 6.2 X10'3 (1.8-7.7); NEUTROPHILS % (AUTO) 88.5 % (42-75); PLATELET COUNT 476 X10'3 (140-440); RED BLOOD COUNT 2.37 X10'6 (4.20-5.60); RED CELL DISTRIBUTION WIDTH 18.2 % (11.5-14.5)
[2018-09-24 06:26] LABS: HEMOGLOBIN 6.8 g/dl (12.0-16.0); INR 1.1 INR; PROTHROMBIN TIME 10.7 SECONDS (9.0-12.0)
[2018-09-24 06:27] LABS: HEMATOCRIT 20.7 % (35.0-45.0)
[2018-09-24 06:37] LABS: ALANINE AMINOTRANSFERASE 12 U/L (12-78); ALBUMIN 2.9 G/DL (3.4-5.0); ALBUMIN/GLOBULIN RATIO 0.9 (1.1-1.5); ALKALINE PHOSPHATASE 68 IU/L (46-116); ANION GAP 9 (8-16); ASPARTATE AMINO TRANSFERASE 13 U/L (10-37); BILIRUBIN,TOTAL 0.5 MG/DL (0.1-1.0); BLOOD UREA NITROGEN 82 MG/DL (7-18); BUN/CREATININE RATIO 132.3 (6.6-38.0); CALCIUM 9.2 MG/DL (8.5-10.1); CHLORIDE 101 MMOL/L (99-107); CREATININE 0.62 MG/DL (0.40-0.90); GLUCOSE 240 MG/DL (70-104); MAGNESIUM 2.3 MG/DL (1.5-2.4); POTASSIUM 3.7 MMOL/L (3.5-5.1); SODIUM 148 MMOL/L (135-145); TOTAL CARBON DIOXIDE 38.2 MMOL/L (24-32); TOTAL PROTEIN 6.3 G/DL (6.4-8.2); eGFR > 90 ML/MIN
[2018-09-24] MEDS: albuterol 2.5 MG/3 ML nebule NEB PRN ×2 (07:02→21:00)
[2018-09-24] MEDS: BUDESONIDE 0.25 MG/2 ML AMPUL.NEB IH SCH ×2 (07:02→20:59)
[2018-09-24] MEDS: ziprasidone IM 20mg inj **IM only IM SCH (08:00)
[2018-09-24] MEDS: K, MAG and/or Phos replacement - Verify level? MC SCH (08:00)
[2018-09-24] MEDS: methylPREDNISolone sod succ/PF 40mg inj. IV SCH ×2 (08:06→20:08)
[2018-09-24] MEDS: quetiapine 100mg tablet PO SCH ×2 (08:07→13:43)
[2018-09-24] MEDS: PARoxetine 20mg tablet PO SCH (08:07)
[2018-09-24] MEDS: famotidine 20mg tablet PO SCH (08:07)
[2018-09-24] MEDS: CefTRIAXone 2gm/D5W 50ml 50 ML IV SCH (08:20)
[2018-09-24] MEDS: levoFLOXACIN 750MG TABLET PO SCH (12:34)
[2018-09-24] MEDS: famotidine/PF 10 mg/ml inj IV SCH (20:08)
[2018-09-24] MEDS: insulin glargine (Lantus) pen - multi-dose SQ SCH (20:53)
[2018-09-25] VITALS (22 sets, daily range): BP systolic 62–163; BP diastolic 41–76
[2018-09-25] MEDS: furosemide 40mg/4ml inj IV SCH ×3 (00:16→15:26)
[2018-09-25] MEDS: morphine 2 MG/ML inj. syringe IV PRN ×2 (01:47→11:13)
[2018-09-25] MEDS: diltiazem 30mg tablet PO SCH ×4 (02:00→19:15)
[2018-09-25 02:44] LABS: BASOPHILS % (AUTO) 0 % (0-1); EOSINOPHILS % (AUTO) 0 % (0-6); HEMATOCRIT 22.1 % (35.0-45.0); HEMOGLOBIN 7.2 g/dl (12.0-16.0); LYMPHOCYTES # (AUTO) 0.7 X10'3 (1.1-4.8); LYMPHOCYTES % (AUTO) 8.1 % (21-51); MEAN CORPUSCULAR HEMOGLOBIN 28.7 PG (27.0-31.0); MEAN CORPUSCULAR HGB CONC 32.6 % (33.0-36.5); MEAN CORPUSCULAR VOLUME 88.1 FL (78-98); MEAN PLATELET VOLUME 7.7 FL (7.4-10.4); MONOCYTES # (AUTO) 0.4 X10'3 (0-0.9); MONOCYTES % (AUTO) 4.9 % (2-12); NEUTROPHILS # (AUTO) 7.5 X10'3 (1.8-7.7); PLATELET COUNT 518 X10'3 (140-440); RED BLOOD COUNT 2.51 X10'6 (4.20-5.60); RED CELL DISTRIBUTION WIDTH 18.6 % (11.5-14.5); WHITE BLOOD COUNT 8.6 X10'3 (4.5-11.0)
[2018-09-25 03:07] LABS: INR 1.1 INR; PROTHROMBIN TIME 11.4 SECONDS (9.0-12.0)
[2018-09-25 03:09] LABS: ALANINE AMINOTRANSFERASE 13 U/L (12-78); ALBUMIN 3.1 G/DL (3.4-5.0); ALBUMIN/GLOBULIN RATIO 0.9 (1.1-1.5); ALKALINE PHOSPHATASE 64 IU/L (46-116); ANION GAP 5 (8-16); ASPARTATE AMINO TRANSFERASE 14 U/L (10-37); BILIRUBIN,TOTAL 0.7 MG/DL (0.1-1.0); BLOOD UREA NITROGEN 81 MG/DL (7-18); BUN/CREATININE RATIO 155.8 (6.6-38.0); CALCIUM 9.7 MG/DL (8.5-10.1); CHLORIDE 103 MMOL/L (99-107); CREATININE 0.52 MG/DL (0.40-0.90); GLUCOSE 129 MG/DL (70-104); MAGNESIUM 2.4 MG/DL (1.5-2.4); POTASSIUM 3.6 MMOL/L (3.5-5.1); SODIUM 152 MMOL/L (135-145); TOTAL PROTEIN 6.5 G/DL (6.4-8.2); eGFR > 90 ML/MIN
[2018-09-25 03:12] LABS: TOTAL CARBON DIOXIDE 44.1 MMOL/L (24-32)
[2018-09-25] MEDS: OLANZapine 5mg rapidly disint. tablet PO SCH (07:33)
[2018-09-25] MEDS: CefTRIAXone 2gm/D5W 50ml 50 ML IV SCH (07:33)
[2018-09-25] MEDS: methylPREDNISolone sod succ/PF 40mg inj. IV SCH ×2 (07:33→19:15)
[2018-09-25] MEDS: famotidine/PF 10 mg/ml inj IV SCH ×2 (07:33→19:15)
[2018-09-25] MEDS: K, MAG and/or Phos replacement - Verify level? MC SCH (07:34)
[2018-09-25] MEDS: BUDESONIDE 0.25 MG/2 ML AMPUL.NEB IH SCH ×2 (08:00→21:04)
[2018-09-25] MEDS: methylnaltrexone br 12mg/0.6ml inj***SubQ only SQ SCH (08:00)
[2018-09-25] MEDS: PARoxetine 20mg tablet PO SCH (08:07)
[2018-09-25] MEDS: quetiapine 100mg tablet PO SCH ×2 (08:07→13:33)
[2018-09-25 08:47] LABS: ALBUMIN 2.9 g/dL (2.9-4.4); GAMMA GLOBULIN 0.5 g/dL (0.4-1.8); GLOBULIN, TOTAL 2.8 g/dL (2.2-3.9); IMMUNOGLOBULIN A, QN, SERUM 222 mg/dL (87-352); IMMUNOGLOBULIN G, QN, SERUM 596 mg/dL (700-1600); IMMUNOGLOBULIN M, QN, SERUM 86 mg/dL (26-217); M-SPIKE Not Observed g/dL (Not Observed); PROTEIN, TOTAL, SERUM 5.7 g/dL (6.0-8.5)
[2018-09-25] MEDS: levoFLOXACIN 750MG TABLET PO SCH (11:13)
[2018-09-25] MEDS: insulin regular, human vial - multi-dose SQ SCH (13:38)
[2018-09-25 15:15] LABS: ATYPICAL PANCA <1:20 titer (Neg:<1:20); CYTOPLASMIC (C-ANCA) <1:20 titer (Neg:<1:20); PERINUCLEAR (P-ANCA) <1:20 titer (Neg:<1:20)
[2018-09-25] MEDS: acetaminophen 325mg tablet PO PRN (19:04)
[2018-09-25] MEDS: insulin Lispro (HumaLOG) vial - multi-dose SQ SCH (19:13)
[2018-09-25] MEDS: dextrose 5%-water 1,000 ML IV SCH (20:25)
[2018-09-25] MEDS: albuterol 2.5 MG/3 ML nebule NEB PRN (21:04)
[2018-09-25] MEDS: insulin glargine (Lantus) pen - multi-dose SQ SCH (21:35)
[2018-09-26] VITALS (24 sets, daily range): BP systolic 97–149; BP diastolic 37–76
[2018-09-26] MEDS: furosemide 40mg/4ml inj IV SCH ×3 (01:23→20:43)
[2018-09-26] MEDS: diltiazem 30mg tablet PO SCH ×4 (01:23→20:44)
[2018-09-26 03:00] LABS: INR 1.2 INR; PROTHROMBIN TIME 12.2 SECONDS (9.0-12.0)
[2018-09-26 03:06] LABS: BASOPHILS % (AUTO) 0 % (0-1); EOSINOPHILS # (AUTO) 0.1 X10'3 (0-0.9); EOSINOPHILS % (AUTO) 1.7 % (0-6); HEMATOCRIT 24.6 % (35.0-45.0); HEMOGLOBIN 7.9 g/dl (12.0-16.0); LYMPHOCYTES # (AUTO) 0.6 X10'3 (1.1-4.8); MEAN CORPUSCULAR HEMOGLOBIN 28.5 PG (27.0-31.0); MEAN CORPUSCULAR HGB CONC 32.2 % (33.0-36.5); MEAN CORPUSCULAR VOLUME 88.4 FL (78-98); MEAN PLATELET VOLUME 7.6 FL (7.4-10.4); MONOCYTES # (AUTO) 0.3 X10'3 (0-0.9); MONOCYTES % (AUTO) 3.9 % (2-12); NEUTROPHILS # (AUTO) 6.9 X10'3 (1.8-7.7); NEUTROPHILS % (AUTO) 87.4 % (42-75); PLATELET COUNT 491 X10'3 (140-440); RED BLOOD COUNT 2.78 X10'6 (4.20-5.60); RED CELL DISTRIBUTION WIDTH 18.7 % (11.5-14.5); WHITE BLOOD COUNT 7.9 X10'3 (4.5-11.0)
[2018-09-26 03:27] LABS: ALANINE AMINOTRANSFERASE 12 U/L (12-78); ALBUMIN 2.9 G/DL (3.4-5.0); ALBUMIN/GLOBULIN RATIO 0.9 (1.1-1.5); ALKALINE PHOSPHATASE 70 IU/L (46-116); ANION GAP 3 (8-16); ASPARTATE AMINO TRANSFERASE 14 U/L (10-37); BILIRUBIN,TOTAL 0.7 MG/DL (0.1-1.0); BLOOD UREA NITROGEN 69 MG/DL (7-18); BUN/CREATININE RATIO 109.5 (6.6-38.0); CALCIUM 9.3 MG/DL (8.5-10.1); CHLORIDE 99 MMOL/L (99-107); CREATININE 0.63 MG/DL (0.40-0.90); GLUCOSE 266 MG/DL (70-104); POTASSIUM 3.8 MMOL/L (3.5-5.1); SODIUM 144 MMOL/L (135-145); TOTAL PROTEIN 6.2 G/DL (6.4-8.2); eGFR > 90 ML/MIN
[2018-09-26 03:37] LABS: TOTAL CARBON DIOXIDE 41.7 MMOL/L (24-32)
[2018-09-26 03:57] LABS: MAGNESIUM 2.2 MG/DL (1.5-2.4)
[2018-09-26] MEDS: dextrose 5%-water 1,000 ML IV SCH (05:20)
[2018-09-26] MEDS: CefTRIAXone 2gm/D5W 50ml 50 ML IV SCH (07:27)
[2018-09-26] MEDS: methylPREDNISolone sod succ/PF 40mg inj. IV SCH (07:28)
[2018-09-26] MEDS: famotidine/PF 10 mg/ml inj IV SCH (07:28)
[2018-09-26] MEDS: heparin, porcine 5000 units/ml vial SQ SCH ×2 (07:29→20:45)
[2018-09-26] MEDS: OLANZapine 5mg rapidly disint. tablet PO SCH (07:30)
[2018-09-26] MEDS: quetiapine 100mg tablet PO SCH ×2 (07:30→13:46)
[2018-09-26] MEDS: acetaminophen 325mg tablet PO PRN ×2 (07:30→20:46)
[2018-09-26] MEDS: PARoxetine 20mg tablet PO SCH (07:38)
[2018-09-26] MEDS: K, MAG and/or Phos replacement - Verify level? MC SCH (07:50)
[2018-09-26] MEDS: BUDESONIDE 0.25 MG/2 ML AMPUL.NEB IH SCH ×2 (08:28→21:26)
[2018-09-26] MEDS: insulin Lispro (HumaLOG) vial - multi-dose SQ SCH ×3 (09:12→20:49)
[2018-09-26] MEDS: levoFLOXACIN 750MG TABLET PO SCH (11:00)
[2018-09-26 20:04] LABS: ALBUMIN 2.9 G/DL (3.4-5.0); ANION GAP 2 (8-16); BLOOD UREA NITROGEN 68 MG/DL (7-18); BUN/CREATININE RATIO 106.3 (6.6-38.0); CALCIUM 9.5 MG/DL (8.5-10.1); CHLORIDE 96 MMOL/L (99-107); CREATININE 0.64 MG/DL (0.40-0.90); GLUCOSE 283 MG/DL (70-104); POTASSIUM 3.8 MMOL/L (3.5-5.1); SODIUM 140 MMOL/L (135-145); eGFR > 90 ML/MIN
[2018-09-26 20:10] LABS: TOTAL CARBON DIOXIDE 41.9 MMOL/L (24-32)
[2018-09-26] MEDS: famotidine 20mg tablet PO SCH (20:44)
[2018-09-26] MEDS: insulin glargine (Lantus) pen - multi-dose SQ SCH (20:50)
[2018-09-26] MEDS: albuterol 2.5 MG/3 ML nebule NEB PRN (21:26)
[2018-09-27] VITALS (18 sets, daily range): BP systolic 77–142; BP diastolic 30–58
[2018-09-27] MEDS: diltiazem 30mg tablet PO SCH ×4 (01:18→21:16)
[2018-09-27] MEDS: acetaminophen 325mg tablet PO PRN ×3 (03:46→19:30)
[2018-09-27 05:36] LABS: BASOPHILS % (AUTO) 0.2 % (0-1); EOSINOPHILS # (AUTO) 0.1 X10'3 (0-0.9); EOSINOPHILS % (AUTO) 1.8 % (0-6); HEMATOCRIT 26.6 % (35.0-45.0); HEMOGLOBIN 8.6 g/dl (12.0-16.0); LYMPHOCYTES # (AUTO) 1.8 X10'3 (1.1-4.8); MEAN CORPUSCULAR HEMOGLOBIN 28.3 PG (27.0-31.0); MEAN CORPUSCULAR HGB CONC 32.2 % (33.0-36.5); MEAN CORPUSCULAR VOLUME 87.9 FL (78-98); MEAN PLATELET VOLUME 7.5 FL (7.4-10.4); MONOCYTES # (AUTO) 0.5 X10'3 (0-0.9); MONOCYTES % (AUTO) 6.1 % (2-12); NEUTROPHILS # (AUTO) 5.8 X10'3 (1.8-7.7); NEUTROPHILS % (AUTO) 69.9 % (42-75); PLATELET COUNT 497 X10'3 (140-440); RED BLOOD COUNT 3.03 X10'6 (4.20-5.60); RED CELL DISTRIBUTION WIDTH 18.6 % (11.5-14.5); WHITE BLOOD COUNT 8.2 X10'3 (4.5-11.0)
[2018-09-27 06:07] LABS: INR 1.1 INR; PROTHROMBIN TIME 11.5 SECONDS (9.0-12.0)
[2018-09-27 06:17] LABS: ALANINE AMINOTRANSFERASE 8 U/L (12-78); ALBUMIN 2.8 G/DL (3.4-5.0); ALBUMIN/GLOBULIN RATIO 0.9 (1.1-1.5); ALKALINE PHOSPHATASE 65 IU/L (46-116); ANION GAP 3 (8-16); ASPARTATE AMINO TRANSFERASE 10 U/L (10-37); BILIRUBIN,TOTAL 0.6 MG/DL (0.1-1.0); BLOOD UREA NITROGEN 57 MG/DL (7-18); CALCIUM 9.1 MG/DL (8.5-10.1); CHLORIDE 96 MMOL/L (99-107); CREATININE 0.57 MG/DL (0.40-0.90); GLUCOSE 248 MG/DL (70-104); POTASSIUM 3.5 MMOL/L (3.5-5.1); PREALBUMIN 33.5 MG/DL (19-36); SODIUM 140 MMOL/L (135-145); TOTAL PROTEIN 5.8 G/DL (6.4-8.2); eGFR > 90 ML/MIN
[2018-09-27 06:40] LABS: TOTAL CARBON DIOXIDE 41.2 MMOL/L (24-32)
[2018-09-27] MEDS: BUDESONIDE 0.25 MG/2 ML AMPUL.NEB IH SCH ×2 (07:38→21:27)
[2018-09-27] MEDS ORDERED: methylPREDNISolone sod succ/PF 40mg inj. IV SCH (08:00)
[2018-09-27] MEDS: furosemide 40mg/4ml inj IV SCH ×2 (08:00→19:29)
[2018-09-27] MEDS: quetiapine 100mg tablet PO SCH ×2 (08:00→13:31)
[2018-09-27] MEDS: heparin, porcine 5000 units/ml vial SQ SCH ×2 (08:00→19:29)
[2018-09-27] MEDS: PARoxetine 20mg tablet PO SCH (08:00)
[2018-09-27] MEDS: CefTRIAXone 2gm/D5W 50ml 50 ML IV SCH (08:00)
[2018-09-27] MEDS: famotidine 20mg tablet PO SCH ×2 (08:00→19:30)
[2018-09-27] MEDS: methylnaltrexone br 12mg/0.6ml inj***SubQ only SQ SCH (08:00)
[2018-09-27] MEDS: OLANZapine 5mg rapidly disint. tablet PO SCH (08:00)
[2018-09-27] MEDS: K, MAG and/or Phos replacement - Verify level? MC SCH (08:00)
[2018-09-27] MEDS: insulin Lispro (HumaLOG) vial - multi-dose SQ SCH ×4 (09:24→21:24)
[2018-09-27] MEDS: levoFLOXACIN 750MG TABLET PO SCH (09:25)
[2018-09-27] MEDS: morphine 2 MG/ML inj. syringe IV PRN ×2 (14:58→21:27)
[2018-09-27] MEDS: insulin glargine (Lantus) pen - multi-dose SQ SCH (21:23)
[2018-09-28] MEDS: diltiazem 30mg tablet PO SCH ×4 (01:58→19:24)
[2018-09-28 03:00] VITALS: BP 113/49
[2018-09-28] MEDS: morphine 2 MG/ML inj. syringe IV PRN ×4 (03:19→19:23)
[2018-09-28 06:59] LABS: BASOPHILS % (AUTO) 0.1 % (0-1); EOSINOPHILS # (AUTO) 0.2 X10'3 (0-0.9); EOSINOPHILS % (AUTO) 2.7 % (0-6); HEMATOCRIT 25.4 % (35.0-45.0); HEMOGLOBIN 8.2 g/dl (12.0-16.0); LYMPHOCYTES # (AUTO) 1.5 X10'3 (1.1-4.8); MEAN CORPUSCULAR HEMOGLOBIN 28.4 PG (27.0-31.0); MEAN CORPUSCULAR HGB CONC 32.2 % (33.0-36.5); MEAN CORPUSCULAR VOLUME 88.4 FL (78-98); MONOCYTES # (AUTO) 0.3 X10'3 (0-0.9); MONOCYTES % (AUTO) 5.1 % (2-12); NEUTROPHILS # (AUTO) 4.5 X10'3 (1.8-7.7); NEUTROPHILS % (AUTO) 69.1 % (42-75); PLATELET COUNT 430 X10'3 (140-440); RED BLOOD COUNT 2.88 X10'6 (4.20-5.60); RED CELL DISTRIBUTION WIDTH 19.5 % (11.5-14.5); WHITE BLOOD COUNT 6.5 X10'3 (4.5-11.0)
[2018-09-28 07:00] VITALS: BP 104/37
[2018-09-28 07:22] LABS: INR 1.1 INR; PROTHROMBIN TIME 11.2 SECONDS (9.0-12.0)
[2018-09-28 07:24] LABS: ALANINE AMINOTRANSFERASE 10 U/L (12-78); ALBUMIN 2.6 G/DL (3.4-5.0); ALBUMIN/GLOBULIN RATIO 0.9 (1.1-1.5); ALKALINE PHOSPHATASE 53 IU/L (46-116); ANION GAP 1 (8-16); ASPARTATE AMINO TRANSFERASE 10 U/L (10-37); BILIRUBIN,TOTAL 0.7 MG/DL (0.1-1.0); BLOOD UREA NITROGEN 59 MG/DL (7-18); BUN/CREATININE RATIO 103.5 (6.6-38.0); CHLORIDE 98 MMOL/L (99-107); CREATININE 0.57 MG/DL (0.40-0.90); GLUCOSE 143 MG/DL (70-104); POTASSIUM 3.6 MMOL/L (3.5-5.1); SODIUM 142 MMOL/L (135-145); TOTAL PROTEIN 5.4 G/DL (6.4-8.2); eGFR > 90 ML/MIN
[2018-09-28 07:27] LABS: TOTAL CARBON DIOXIDE 43.5 MMOL/L (24-32)
[2018-09-28] MEDS: PARoxetine 20mg tablet PO SCH (07:57)
[2018-09-28] MEDS: OLANZapine 5mg rapidly disint. tablet PO SCH (07:57)
[2018-09-28] MEDS: predniSONE 20 mg tablet PO SCH (07:57)
[2018-09-28] MEDS: CefTRIAXone 2gm/D5W 50ml 50 ML IV SCH (07:57)
[2018-09-28] MEDS: famotidine 20mg tablet PO SCH ×2 (07:57→19:23)
[2018-09-28] MEDS: quetiapine 100mg tablet PO SCH ×2 (07:57→14:10)
[2018-09-28] MEDS: heparin, porcine 5000 units/ml vial SQ SCH ×2 (07:58→19:23)
[2018-09-28] MEDS: furosemide 40mg/4ml inj IV SCH ×2 (07:58→19:23)
[2018-09-28] MEDS: K, MAG and/or Phos replacement - Verify level? MC SCH (08:00)
[2018-09-28] MEDS ORDERED: methylPREDNISolone sod succ/PF 40mg inj. IV SCH (08:00)
[2018-09-28] MEDS: BUDESONIDE 0.25 MG/2 ML AMPUL.NEB IH SCH ×2 (08:24→20:43)
[2018-09-28] MEDS: insulin Lispro (HumaLOG) vial - multi-dose SQ SCH ×3 (08:34→18:39)
[2018-09-28 11:00] VITALS: BP 111/37
[2018-09-28] MEDS: levoFLOXACIN 750MG TABLET PO SCH (11:05)
[2018-09-28 15:00] VITALS: BP 119/55
[2018-09-28 18:54] VITALS: BP 114/53
[2018-09-28] MEDS: insulin glargine (Lantus) pen - multi-dose SQ SCH (21:24)
[2018-09-28 23:00] VITALS: BP 121/47
[2018-09-29] MEDS: morphine 2 MG/ML inj. syringe IV PRN ×4 (01:30→19:33)
[2018-09-29] MEDS: diltiazem 30mg tablet PO SCH ×4 (01:30→19:33)
[2018-09-29 03:00] VITALS: BP 129/39
[2018-09-29 06:00] VITALS: BP 116/32
[2018-09-29 06:51] LABS: BASOPHILS % (AUTO) 0.2 % (0-1); EOSINOPHILS # (AUTO) 0.3 X10'3 (0-0.9); EOSINOPHILS % (AUTO) 3.6 % (0-6); HEMATOCRIT 25.9 % (35.0-45.0); HEMOGLOBIN 8.4 g/dl (12.0-16.0); LYMPHOCYTES # (AUTO) 1.6 X10'3 (1.1-4.8); LYMPHOCYTES % (AUTO) 22.3 % (21-51); MEAN CORPUSCULAR HEMOGLOBIN 28.6 PG (27.0-31.0); MEAN CORPUSCULAR HGB CONC 32.3 % (33.0-36.5); MEAN CORPUSCULAR VOLUME 88.6 FL (78-98); MEAN PLATELET VOLUME 7.4 FL (7.4-10.4); MONOCYTES # (AUTO) 0.3 X10'3 (0-0.9); NEUTROPHILS # (AUTO) 4.9 X10'3 (1.8-7.7); NEUTROPHILS % (AUTO) 69.9 % (42-75); PLATELET COUNT 347 X10'3 (140-440); RED BLOOD COUNT 2.93 X10'6 (4.20-5.60); RED CELL DISTRIBUTION WIDTH 19.4 % (11.5-14.5)
[2018-09-29 07:05] LABS: PROTHROMBIN TIME 10.5 SECONDS (9.0-12.0)
[2018-09-29 07:14] LABS: ALANINE AMINOTRANSFERASE 13 U/L (12-78); ALBUMIN 2.7 G/DL (3.4-5.0); ALBUMIN/GLOBULIN RATIO 0.9 (1.1-1.5); ALKALINE PHOSPHATASE 63 IU/L (46-116); ANION GAP 0 (8-16); ASPARTATE AMINO TRANSFERASE 10 U/L (10-37); BILIRUBIN,TOTAL 0.7 MG/DL (0.1-1.0); BLOOD UREA NITROGEN 52 MG/DL (7-18); BUN/CREATININE RATIO 94.5 (6.6-38.0); CHLORIDE 98 MMOL/L (99-107); CREATININE 0.55 MG/DL (0.40-0.90); GLUCOSE 127 MG/DL (70-104); POTASSIUM 3.6 MMOL/L (3.5-5.1); SODIUM 140 MMOL/L (135-145); TOTAL PROTEIN 5.6 G/DL (6.4-8.2); eGFR > 90 ML/MIN
[2018-09-29 07:22] LABS: TOTAL CARBON DIOXIDE 41.7 MMOL/L (24-32)
[2018-09-29] MEDS: albuterol 2.5 MG/3 ML nebule NEB PRN (07:24)
[2018-09-29] MEDS: BUDESONIDE 0.25 MG/2 ML AMPUL.NEB IH SCH ×2 (07:25→20:53)
[2018-09-29] MEDS: predniSONE 20 mg tablet PO SCH (07:51)
[2018-09-29] MEDS: famotidine 20mg tablet PO SCH ×2 (07:51→19:33)
[2018-09-29] MEDS: furosemide 40mg/4ml inj IV SCH ×2 (07:51→19:33)
[2018-09-29] MEDS: quetiapine 100mg tablet PO SCH ×2 (07:56→13:25)
[2018-09-29] MEDS: OLANZapine 5mg rapidly disint. tablet PO SCH (07:56)
[2018-09-29] MEDS: CefTRIAXone 2gm/D5W 50ml 50 ML IV SCH (08:00)
[2018-09-29] MEDS: K, MAG and/or Phos replacement - Verify level? MC SCH (08:00)
[2018-09-29] MEDS: methylnaltrexone br 12mg/0.6ml inj***SubQ only SQ SCH (08:01)
[2018-09-29] MEDS: heparin, porcine 5000 units/ml vial SQ SCH ×2 (08:07→19:33)
[2018-09-29] MEDS: PARoxetine 20mg tablet PO SCH (08:26)
[2018-09-29] MEDS: insulin Lispro (HumaLOG) vial - multi-dose SQ SCH ×3 (09:16→18:54)
[2018-09-29 11:00] VITALS: BP 99/32
[2018-09-29] MEDS: levoFLOXACIN 750MG TABLET PO SCH (11:10)
[2018-09-29 15:00] VITALS: BP 112/35
[2018-09-29 19:00] VITALS: BP 109/49
[2018-09-29] MEDS: insulin glargine (Lantus) pen - multi-dose SQ SCH (21:21)
[2018-09-29 23:00] VITALS: BP 117/35
[2018-09-30] MEDS: diltiazem 30mg tablet PO SCH ×4 (01:02→21:11)
[2018-09-30 03:00] VITALS: BP 125/48
[2018-09-30] MEDS: morphine 2 MG/ML inj. syringe IV PRN (03:09)
[2018-09-30 06:00] VITALS: BP 129/51
[2018-09-30] MEDS: furosemide 40mg/4ml inj IV SCH ×2 (07:54→21:12)
[2018-09-30] MEDS: famotidine 20mg tablet PO SCH ×2 (07:55→21:11)
[2018-09-30] MEDS: quetiapine 100mg tablet PO SCH ×2 (07:55→14:07)
[2018-09-30] MEDS: CefTRIAXone 2gm/D5W 50ml 50 ML IV SCH (07:58)
[2018-09-30] MEDS: heparin, porcine 5000 units/ml vial SQ SCH ×2 (07:59→21:11)
[2018-09-30] MEDS: K, MAG and/or Phos replacement - Verify level? MC SCH (08:00)
[2018-09-30] MEDS: predniSONE 20 mg tablet PO SCH (08:02)
[2018-09-30] MEDS: OLANZapine 5mg rapidly disint. tablet PO SCH (08:02)
[2018-09-30 08:20] LABS: BASOPHILS % (AUTO) 0.1 % (0-1); EOSINOPHILS # (AUTO) 0.2 X10'3 (0-0.9); EOSINOPHILS % (AUTO) 3.1 % (0-6); HEMATOCRIT 24.8 % (35.0-45.0); LYMPHOCYTES # (AUTO) 1.1 X10'3 (1.1-4.8); LYMPHOCYTES % (AUTO) 15.6 % (21-51); MEAN CORPUSCULAR HEMOGLOBIN 28.6 PG (27.0-31.0); MEAN CORPUSCULAR HGB CONC 32.2 % (33.0-36.5); MEAN CORPUSCULAR VOLUME 88.9 FL (78-98); MEAN PLATELET VOLUME 7.4 FL (7.4-10.4); MONOCYTES # (AUTO) 0.2 X10'3 (0-0.9); MONOCYTES % (AUTO) 3.2 % (2-12); NEUTROPHILS # (AUTO) 5.3 X10'3 (1.8-7.7); PLATELET COUNT 291 X10'3 (140-440); RED BLOOD COUNT 2.79 X10'6 (4.20-5.60); RED CELL DISTRIBUTION WIDTH 19.1 % (11.5-14.5); WHITE BLOOD COUNT 6.8 X10'3 (4.5-11.0)
[2018-09-30 08:34] LABS: ALANINE AMINOTRANSFERASE 14 U/L (12-78); ALBUMIN 2.6 G/DL (3.4-5.0); ALBUMIN/GLOBULIN RATIO 0.9 (1.1-1.5); ALKALINE PHOSPHATASE 56 IU/L (46-116); ANION GAP 3 (8-16); ASPARTATE AMINO TRANSFERASE 13 U/L (10-37); BILIRUBIN,TOTAL 0.5 MG/DL (0.1-1.0); BLOOD UREA NITROGEN 42 MG/DL (7-18); BUN/CREATININE RATIO 82.4 (6.6-38.0); CALCIUM 8.7 MG/DL (8.5-10.1); CHLORIDE 98 MMOL/L (99-107); CREATININE 0.51 MG/DL (0.40-0.90); GLUCOSE 142 MG/DL (70-104); POTASSIUM 3.7 MMOL/L (3.5-5.1); SODIUM 139 MMOL/L (135-145); TOTAL CARBON DIOXIDE 38.4 MMOL/L (24-32); TOTAL PROTEIN 5.4 G/DL (6.4-8.2); eGFR > 90 ML/MIN
[2018-09-30] MEDS: PARoxetine 20mg tablet PO SCH (08:36)
[2018-09-30] MEDS: insulin Lispro (HumaLOG) vial - multi-dose SQ SCH ×3 (08:42→19:14)
[2018-09-30 09:07] LABS: PROTHROMBIN TIME 10.3 SECONDS (9.0-12.0)
[2018-09-30] MEDS: morphine 4 MG/ML inj SYRINge IV PRN ×2 (09:23→21:30)
[2018-09-30] MEDS: BUDESONIDE 0.25 MG/2 ML AMPUL.NEB IH SCH ×2 (09:57→20:07)
[2018-09-30] MEDS: levoFLOXACIN 750MG TABLET PO SCH (10:59)
[2018-09-30 11:00] VITALS: BP 110/34
[2018-09-30 15:00] VITALS: BP 125/37
[2018-09-30 19:00] VITALS: BP 129/52
[2018-09-30] MEDS: insulin glargine (Lantus) pen - multi-dose SQ SCH (21:21)
[2018-09-30 22:29] VITALS: BP 109/51
[2018-10-01] MEDS: morphine 4 MG/ML inj SYRINge IV PRN (02:48)
[2018-10-01] MEDS: diltiazem 30mg tablet PO SCH ×3 (02:48→14:06)
[2018-10-01 02:58] VITALS: BP 110/40
[2018-10-01 06:30] VITALS: BP 107/35
[2018-10-01 06:45] LABS: BASOPHILS % (AUTO) 0.1 % (0-1); EOSINOPHILS # (AUTO) 0.2 X10'3 (0-0.9); EOSINOPHILS % (AUTO) 3.1 % (0-6); HEMATOCRIT 25.8 % (35.0-45.0); HEMOGLOBIN 8.3 g/dl (12.0-16.0); LYMPHOCYTES # (AUTO) 0.9 X10'3 (1.1-4.8); LYMPHOCYTES % (AUTO) 12.5 % (21-51); MEAN CORPUSCULAR HEMOGLOBIN 28.4 PG (27.0-31.0); MEAN CORPUSCULAR HGB CONC 32.2 % (33.0-36.5); MEAN CORPUSCULAR VOLUME 88.2 FL (78-98); MEAN PLATELET VOLUME 7.6 FL (7.4-10.4); MONOCYTES # (AUTO) 0.3 X10'3 (0-0.9); MONOCYTES % (AUTO) 3.6 % (2-12); NEUTROPHILS # (AUTO) 6.1 X10'3 (1.8-7.7); NEUTROPHILS % (AUTO) 80.7 % (42-75); PLATELET COUNT 264 X10'3 (140-440); RED BLOOD COUNT 2.93 X10'6 (4.20-5.60); RED CELL DISTRIBUTION WIDTH 19.2 % (11.5-14.5); WHITE BLOOD COUNT 7.5 X10'3 (4.5-11.0)
[2018-10-01] MEDS: methylnaltrexone br 12mg/0.6ml inj***SubQ only SQ SCH (06:47)
[2018-10-01 06:53] LABS: ALANINE AMINOTRANSFERASE 12 U/L (12-78); ALBUMIN 2.6 G/DL (3.4-5.0); ALBUMIN/GLOBULIN RATIO 0.8 (1.1-1.5); ALKALINE PHOSPHATASE 61 IU/L (46-116); ANION GAP 1 (8-16); ASPARTATE AMINO TRANSFERASE 13 U/L (10-37); BILIRUBIN,TOTAL 0.5 MG/DL (0.1-1.0); BLOOD UREA NITROGEN 38 MG/DL (7-18); CALCIUM 8.9 MG/DL (8.5-10.1); CHLORIDE 101 MMOL/L (99-107); GLUCOSE 110 MG/DL (70-104); POTASSIUM 3.7 MMOL/L (3.5-5.1); SODIUM 141 MMOL/L (135-145); TOTAL CARBON DIOXIDE 38.6 MMOL/L (24-32); TOTAL PROTEIN 5.7 G/DL (6.4-8.2); eGFR > 90 ML/MIN
[2018-10-01 07:00] LABS: PROTHROMBIN TIME 10.2 SECONDS (9.0-12.0)
[2018-10-01] MEDS: OLANZapine 5mg rapidly disint. tablet PO SCH (07:25)
[2018-10-01] MEDS: heparin, porcine 5000 units/ml vial SQ SCH (07:25)
[2018-10-01] MEDS: CefTRIAXone 2gm/D5W 50ml 50 ML IV SCH (07:25)
[2018-10-01] MEDS: quetiapine 100mg tablet PO SCH ×2 (07:25→14:06)
[2018-10-01] MEDS: famotidine 20mg tablet PO SCH (07:25)
[2018-10-01] MEDS: PARoxetine 20mg tablet PO SCH (07:25)
[2018-10-01] MEDS: furosemide 40mg/4ml inj IV SCH (07:26)
[2018-10-01] MEDS: K, MAG and/or Phos replacement - Verify level? MC SCH (08:00)
[2018-10-01] MEDS: BUDESONIDE 0.25 MG/2 ML AMPUL.NEB IH SCH (08:38)
[2018-10-01] MEDS: albuterol 2.5 MG/3 ML nebule NEB PRN (08:41)
[2018-10-01] MEDS: predniSONE 20 mg tablet PO SCH (09:03)
[2018-10-01] MEDS: insulin Lispro (HumaLOG) vial - multi-dose SQ SCH (09:06)
[2018-10-01 11:00] VITALS: BP 106/61
[2018-10-01] MEDS: morphine 2 MG/ML inj. syringe IV PRN (11:35)
[2018-10-01] MEDS: levoFLOXACIN 750MG TABLET PO SCH (11:35)
[2018-10-01 14:01] VITALS: BP 129/56
[2018-10-01 15:00] VITALS: BP 116/57
[2018-10-01] MEDS: acetaminophen 325mg tablet PO PRN (19:05)
== END 2018-10-01 19:15 | disposition hospice, home (50) | DRG 130 ==
LOC: CICU 2S 11:51 → PCU 3S 09-27 14:14
PROVIDERS: ADMIT Internal Medicine Critical Care Medicine
PROC: 0BH17EZ Insertion of Endotracheal Airway into Trachea, Via Natural or Artificial Opening (ICD-10-PCS; principal; 2018-09-18)
PROC: 5A1955Z Respiratory Ventilation, Greater than 96 Consecutive Hours (ICD-10-PCS; 2018-09-18)
PROC: 5A12012 Performance of Cardiac Output, Single, Manual (ICD-10-PCS; 2018-09-18)
PROC: 30233N1 Transfusion of Nonautologous Red Blood Cells into Peripheral Vein, Percutaneous Approach (ICD-10-PCS; 2018-09-18)
PROC: 30233N1 Transfusion of Nonautologous Red Blood Cells into Peripheral Vein, Percutaneous Approach (ICD-10-PCS; 2018-09-19)
PROC: 30233N1 Transfusion of Nonautologous Red Blood Cells into Peripheral Vein, Percutaneous Approach (ICD-10-PCS; 2018-09-20)
PROC: 05HY33Z Insertion of Infusion Device into Upper Vein, Percutaneous Approach (ICD-10-PCS; 2018-09-23)
PROC: 3E0234Z Introduction of Serum, Toxoid and Vaccine into Muscle, Percutaneous Approach (ICD-10-PCS; 2018-09-25)
PROC: 5A1935Z Respiratory Ventilation, Less than 24 Consecutive Hours (ICD-10-PCS; 2018-09-29)
PROC: 5A1935Z Respiratory Ventilation, Less than 24 Consecutive Hours (ICD-10-PCS; 2018-10-01)
DX: J96.21 Acute and chronic respiratory failure with hypoxia (principal); I46.9 Cardiac arrest, cause unspecified; J69.0 Pneumonitis due to inhalation of food and vomit; E87.0 Hyperosmolality and hypernatremia; D61.9 Aplastic anemia, unspecified; I50.9 Heart failure, unspecified; J96.22 Acute and chronic respiratory failure with hypercapnia; E11.65 Type 2 diabetes mellitus with hyperglycemia; E66.9 Obesity, unspecified; J44.9 Chronic obstructive pulmonary disease, unspecified; Z68.41 Body mass index [BMI] 40.0-44.9, adult; F25.9 Schizoaffective disorder, unspecified; F31.9 Bipolar disorder, unspecified; K80.20 Calculus of gallbladder without cholecystitis without obstruction; T42.6X5A Adverse effect of other antiepileptic and sedative-hypnotic drugs, initial encounter; R29.6 Repeated falls; Z51.5 Encounter for palliative care; Z74.01 Bed confinement status; Z79.01 Long term (current) use of anticoagulants; Z86.74 Personal history of sudden cardiac arrest; Z99.81 Dependence on supplemental oxygen; Z23 Encounter for immunization; Y92.89 Other specified places as the place of occurrence of the external cause
CPT/HCPCS: 36415; 36600; 71045; 71260; 74177; 80048; 80053; 82140; 82150; 82607; 82668; 82728; 82784; 82803; 82948; 83010; 83036; 83520; 83540; 83550; 83605; 83615; 83690; 83735; 83880; 84100; 84132; 84134; 84145; 84155; 84165; 84439; 84443; 85007; 85018; 85025; 85027; 85045; 85379; 85384; 85610; 86256; 86334; 86880; 86885; 86900; 86901; 86920; 87070; 90732; 92616; 93005; 93306; 94002; 94003; 94640; 94760; 97161; 97530; C9113; G0378; J0696; J1644; J1650; J1815; J1940; J2270; J2704; J2920; J2930; J3480; J3486; J3490; J7070; J7512; P9016; P9047; Q9963; Q9967